=== PATIENT | male | born 1985 | race Hispanic/Latino ===

== ENCOUNTER 2016-06-24 10:53 | Emergency (ER) | payer OTHER ==
[2016-06-24] MEDS ORDERED: Lidocaine 1% 20 ML MDV ONE (11:37)
[2016-06-24] MEDS ORDERED: Sodium Bicarbonate 2.4 MEQ/5 ML ONE (11:37)
[2016-06-24] MEDS ORDERED: Adacel (T-DAP) 0.5 ML VIAL ONE (12:20)
[2016-06-24] MEDS ORDERED: Bacitracin Zinc 1 Packet ONE ×2 (12:21)
[2016-06-24] MEDS ORDERED: Amoxicillin/Potassium Clav 875 MG TAB ONE (12:31)
--- NOTE | 2016-06-24 13:16 | RAD ---
RIGHT HAND RADIOGRAPHS THREE VIEWS: Date: 06-24-16 Provided Clinical History: Evidence for soft tissue foreign body status post laceration. FINDINGS: There is no evidence for fracture or other acute osseous abnormality. Alignment appears anatomic. Katie int spaces appear preserved. Soft tissues appear radiographically unremarkable. No evidence for radi opaque soft tissue foreign body. IMPRESSION: No evidence for acute process. POS: OFF
== END 2016-06-24 13:05 | disposition home or self-care (01) ==
LOC: NAV ERS 10:53
DX: S61.411A Laceration without foreign body of right hand, initial encounter (principal); W45.8XXA Other foreign body or object entering through skin, initial encounter
CPT/HCPCS: 12002; 90471; 90715; J2001